=== PATIENT | male | born 1965 | race Caucasian/White ===

== ENCOUNTER 2016-11-24 22:23 | Emergency (ER) | payer OTHER ==
[~2016-11-24 22:23] MED LIST: AMOXIL500 MG PO; ASAB PO; ASABAYER PO; AUG875; AUG875 PO; CAT1 PO; DURICEF PO; GLUCOPHAGE1000 MG PO; GLUCOTRO10 PO; GLUCOTROL5 PO; GLUCPH PO; GOODY'S EX-STR1 EAC1 PO; GOODY'S HEADAC1 EACH PO; HUMALOG SC; HUMALOGMIX SC; HUMALOGPEN SC; IODOSORB TOP; LEVEMFLXPN SC; LEVOTHYROXIN25 MCG PO; LIPITOR40 PO; LOFIBRA160 MG PO; LYRICA50 PO; MULTIVIT/MIN PO; NEUR300 PO; NEUR400 PO; NEUR600 PO; NEURONTIN PO; NORV10 PO; NORVASC PO; OTC EYE DROP OPH; OXYCOD PO; PCET PO; PERCOCET PO; PERCOCET1 TA4 PO; PR25 PO; PRIN10 PO; PRIN20 PO; ZESTRIL10 MG PO; [UNRECOGNIZED DRUG - OTHER] PO
[2016-11-24 23:35] LABS: BASOPHILS 0.4 %; BASOPHILS ABSOLUTE 0.05 10/3/uL (0.0-0.16); EOSINOPHILS 3.6 %; EOSINOPHILS ABSOLUTE 0.49 10/3/uL (0.0-0.53); HEMATOCRIT 39.3 % (40.0-51.0); HEMOGLOBIN 14.2 g/dL (13.6-17.8); IMMATURE GRANULOCYTES ABSOLUTE 0.27 10/3/uL (0.0-0.11); LYMPHOCYTES 29.6 %; LYMPHOCYTES ABSOLUTE 4.07 10/3/uL (0.67-4.30); MEAN CORPUS HGB CONC 36.1 g/dL (32.0-36.0); MEAN CORPUSCULAR HEMOGLOB 29.9 pg (26.0-34.0); MEAN CORPUSCULAR VOLUME 82.7 fL (80-100); MEAN PLATELET VOLUME 9.4 fL (9.2-13.0); MONOCYTES ABSOLUTE 0.96 10/3/uL (0.21-1.20); NEUTROPHILS 57.4 %; NEUTROPHILS ABSOLUTE 7.89 10/3/uL (2.02-8.40); RBC DISTRIBUTION WIDTH 13.4 % (12.0-16.0); RED CELL COUNT 4.75 10/6/uL (4.7-6.1)
[2016-11-24 23:36] LABS: ER CBC TAT 0 Hrs 05 Mins; MANUAL DIFF NO %; PLATELET COUNT 320 10/3/uL (150-400); WHITE BLOOD CELLS 13.7 10/3/uL (4.5-10.5)
[2016-11-24 23:53] LABS: LACTATE 1.3 MMOL/L (0.3-2.4)
[2016-11-25 00:17] LABS: PROCALCITONIN <0.05 ng/mL (<0.5)
[2016-11-25 01:00] LABS: A/G RATIO 0.9 (0.7-1.9); ALBUMIN 3.4 G/DL (3.5-5.0); BUN (BLOOD UREA NITROGEN) 16 MG/DL (6-23); CALCIUM, SERUM 8.8 MG/DL (8.5-10.4); CHLORIDE, SERUM 101 MMOL/L (96-112); CO2 (CARBON DIOXIDE) 25 MMOL/L (24-34); CREATININE 0.85 MG/DL (0.70-1.30); GFR AFRICAN AMERICAN 117 ML/MIN (>=60); GFR NON AFRICAN AMERICAN 101 ML/MIN (>=60); GLOBULIN 3.8 G/DL (2.5-4.1); GLUCOSE, SERUM 233 MG/DL (60-99); POTASSIUM, SERUM 3.8 MMOL/L (3.5-5.3); SGOT(AST) 11 U/L (5-40); SGPT(ALT) 25 U/L (5-65); SODIUM, SERUM 136 MMOL/L (135-148); TOTAL PROTEIN 7.2 G/DL (6.0-8.5)
[2016-11-25 01:01] LABS: ALKALINE PHOSPHATASE 108 U/L (45-117); TOTAL BILIRUBIN 0.3 MG/DL (0-1.2)
== END 2016-11-25 02:08 | disposition home or self-care (01) ==
LOC: ER 22:23
PROVIDERS: Nurse Practitioner
DX: E11.621 Type 2 diabetes mellitus with foot ulcer (principal); E11.65 Type 2 diabetes mellitus with hyperglycemia; I10 Essential (primary) hypertension; F41.9 Anxiety disorder, unspecified; E78.5 Hyperlipidemia, unspecified; Z79.4 Long term (current) use of insulin; Z86.73 Personal history of transient ischemic attack (TIA), and cerebral infarction without residual deficits; Z79.82 Long term (current) use of aspirin; Z79.899 Other long term (current) drug therapy
CPT/HCPCS: 73630-LT; 80053; 83605; 84145; 85025; 87040; 87070; 87077; 87186; 87205; 99285